=== PATIENT | female | born 1955 | race Two or more races ===

== ENCOUNTER 2021-11-15 14:52 | Emergency (ER) | payer MEDICARE, OTHER ==
--- NOTE | 2021-11-15 15:10 | ED Physician Documentation ---
PD HPI ABD PAIN - Stated complaint Stated Complaint: FEVER,CHILLS,LOWER ABD PX - Chief complaint Chief Complaint: Abd Pain - History obtained from History obtained from: Patient - History of Present Illness Timing - onset: How many days ago (2-3) Timing - duration: Days Timing - details: Gradual onset, Still present, Waxing and waning Quality: Cramping, Aching, Pain Location: Suprapubic, LLQ Radiation: Left flank. No: Chest Associated symptoms: Fever (chills), Nausea, Dysuria (frequency), Loss of appetite. No: Vomiting, Diarrhea, Constipation, Hematuria, Vaginal dc Similar symptoms before: Diagnosis (had just cystitis symptoms recently. Did not have chills, flank pain at that time.) Recently seen: Clinic (Patient seen about 10 days ago for dysuria and frequency and had a urinalysis consistent with UTI. Primary care prescribed Macrobid for 5 days and patient was feeling better. Symptoms now again over a few days.) Review of Systems Constitutional: reports: Fever, Chills. denies: Myalgias Nose: denies: Rhinorrhea / runny nose, Congestion Throat: denies: Sore throat Cardiac: denies: Chest pain / pressure Respiratory: denies: Cough GI: reports: Abdominal Pain, Nausea. denies: Vomiting, Constipation, Diarrhea : reports: Dysuria, Frequency. denies: Discharge Skin: denies: Rash, Lesions Neurologic: reports: Generalized weakness, Near syncope (with standing up yesterday). denies: Syncope, Altered mental status, Headache PD PAST MEDICAL HISTORY - Past Medical History Cardiovascular: None Respiratory: None Neuro: None Endocrine/Autoimmune: None : None - Present Medications Home Medications: Ambulatory Orders Medication Instructions Recorded Confirmed Ondansetron Odt [Zofran] 4 mg TL Q6H PRN #10 tablet 11/15/21 cephALEXin [Keflex] 500 mg PO QID 7 Days #28 cap 11/15/21 - Allergies Allergies/Adverse Reactions: Allergies Allergy/AdvReac Type Severity Reaction Status Date / Time lisinopril Allergy Unknown Verified 11/15/21 15:03 PD ED PE NORMAL - Vitals Vital signs reviewed: Yes (febrile and tachycardic; good BP. ) - General General: Alert and oriented X 3, No acute distress, Well developed/nourished - HEENT HEENT: Pharynx benign. No: Moist mucous membranes - Neck Neck: Supple, no meningeal sign, No adenopathy - Cardiac Cardiac: No murmur. No: RRR (regular but tachycardic) - Respiratory Respiratory: No respiratory distress, Clear bilaterally - Abdomen Abdomen: Soft, Non distended, No organomegaly, Other (Tender in the lower abdomen both left and right but more to the left. Some local guarding. No percussion nor rebound tenderness. Left CVA tenderness noted. No rash or sores.). No: Normal bowel sounds (diminished) - Female Female : Deferred - Rectal Rectal: Deferred - Back Back: Other (left CVA tender) - Derm Derm: Normal color, Warm and dry - Extremities Extremities: Normal ROM s pain, No edema, No calf tenderness / cord Results - Vitals Vitals: Vital Signs - 24 hr 11/15/21 11/15/21 11/15/21 14:58 15:03 15:33 Temperature 39.1 C H 39.1 C H 37.9 C Heart Rate 122 H 122 H 106 H Respiratory 28 H 28 H 24 Rate Blood Pressure 174/79 H 174/79 H 153/69 H O2 Saturation 97 97 96 11/15/21 11/15/21 11/15/21 16:03 16:30 17:06 Temperature 37.9 C Heart Rate 106 H 104 H 98 Respiratory 22 20 22 Rate Blood Pressure 150/70 H 153/71 H 136/67 H O2 Saturation 97 96 96 11/15/21 11/15/21 17:36 18:04 Temperature 37.8 C Heart Rate 98 90 Respiratory 18 16 Rate Blood Pressure 143/65 H 138/66 H O2 Saturation 99 100 Oxygen O2 Source Room air - Labs Labs: Laboratory Tests 11/15/21 11/15/21 11/15/21 15:32 15:32 15:32 WBC 15.8 H RBC 4.04 L Hgb 12.3 Hct 37.6 MCV 93.1 MCH 30.4 MCHC 32.7 RDW 13.0 Plt Count 210 MPV 9.3 Neut # (Auto) 14.2 H Lymph # (Auto) 0.6 L [place] # (Auto) 0.8 Eos # (Auto) 0.0 Baso # (Auto) 0.1 Absolute Nucleated RBC 0.00 Nucleated RBC % 0.0 Sodium 135 Potassium 3.4 L Chloride 99 L Carbon Dioxide 25 Anion Gap 11.0 BUN 19 Creatinine 1.1 H Estimated GFR (MDRD) 50 L Glucose 111 H Lactic Acid 0.9 Calcium 9.8 Magnesium 2.1 Total Bilirubin 1.9 H AST 62 H ALT 68 H Alkaline Phosphatase 66 Total Protein 8.1 Albumin 4.3 Globulin 3.8 Albumin/Globulin Ratio 1.1 Urine Color Urine Clarity Urine pH Ur Specific [place] Urine Protein Urine Glucose (UA) Urine Ketones Urine Occult Blood Urine Nitrite Urine Bilirubin Urine Urobilinogen Ur Leukocyte Esterase Urine RBC Urine WBC Ur Squamous Epith Cells Urine Bacteria Urine Culture Comments SARS-CoV-2 (PCR) 11/15/21 11/15/21 15:32 15:50 WBC RBC Hgb Hct MCV MCH MCHC RDW Plt Count MPV Neut # (Auto) Lymph # (Auto) [place] # (Auto) Eos # (Auto) Baso # (Auto) Absolute Nucleated RBC Nucleated RBC % Sodium Potassium Chloride Carbon Dioxide Anion Gap BUN Creatinine Estimated GFR (MDRD) Glucose Lactic Acid Calcium Magnesium Total Bilirubin AST ALT Alkaline Phosphatase Total Protein Albumin Globulin Albumin/Globulin Ratio Urine Color YELLOW Urine Clarity HAZY Urine pH 7.0 Ur Specific [place] 1.015 Urine Protein 30 H Urine Glucose (UA) NEGATIVE Urine Ketones 15 H Urine Occult Blood SMALL H Urine Nitrite NEGATIVE Urine Bilirubin NEGATIVE Urine Urobilinogen 0.2 (NORMAL) Ur Leukocyte Esterase TRACE H Urine RBC 0-5 Urine WBC 6-10 H Ur Squamous Epith Cells RARE Squamous Urine Bacteria Few Urine Culture Comments INDICATED SARS-CoV-2 (PCR) NOT DETECTED - Rads (name of study) abd/pelvic CT Radiology: Prelim report reviewed (Inflammatory changes around the left kidney with some mild dilation of the ureter. No calcified stones visible. Likely pyelonephritis. No intestinal source.), See rad report PD MEDICAL DECISION MAKING - ED course Complexity details: reviewed results, re-evaluated patient (The patient is actually feeling a bit better with some IV fluids and medications. She is uncertain about wanting to be in the hospital versus going home. We will give a little bit more IV fluids and reassess.), considered differential (Had cystitis with treatment by Macrobid. Return if symptoms and now fever lower abdominal and left flank pain likely consistent with pyelonephritis.), d/w patient ED course: Feeling well. taking fluids. HR improved. Lactate normal. Feeling she would prefer going home. Departure - Departure Disposition: Home, Self Care Clinical Impression: Pyelonephritis, Abdominal pain, SIRS (systemic inflammatory response syndrome) Condition: Stable Record reviewed to determine appropriate education?: Yes Instructions: ED Kidney Infec Female Follow-Up: Carolina Lock ARNP [Primary Care Provider] - Prescriptions: cephALEXin [Keflex] 500 mg PO QID 7 Days #28 cap Ondansetron Odt [Zofran] 4 mg TL Q6H PRN #10 tablet PRN Reason: Nausea / Vomiting Comments: Frequent fluids to maintain good hydration. Diet as tolerated. You do have an apparent kidney infection which has gotten you reasonably ill but you do not appear septic per se on your blood test. You seem to be improving heart rate in fever while here with fluids and medication. You can try going home and see how you do and I would feel reasonably sure you are going to do fine with home therapy and medications. Cephalexin antibiotic 4 times daily for the next week. Ondansetron if needed for nausea every 6 hours. Tylenol every 4-6 hours probably regularly for 2 days and then as needed. I would anticipate improvement over the next couple of days. Return if not improving well or if worsening symptoms again. I transmitted your prescriptions to [facility] in [place]. Discharge Date/Time: 11/15/21 18:04
[2021-11-15] MEDS ORDERED: cefTRIAXone 1 GM in SODIUM CHLORIDE 0.9% MINIBAG 100 ML IV STA (15:23)
[2021-11-15] MEDS ORDERED: KETOROLAC 15 MG/ML VIAL IVP STA (15:24)
[2021-11-15] MEDS ORDERED: ONDANSETRON 4 MG/2 ML VIAL IVP STA (15:24)
[2021-11-15] MEDS ORDERED: ACETAMINOPHEN 325 MG TABLET PO STA (15:24)
[2021-11-15] MEDS ORDERED: SODIUM CHLORIDE 0.9% 1,000 ML IV STA ×2 (15:24→16:46)
[2021-11-15 15:45] LABS: BASOPHILS # (AUTO) 0.1 10^3/uL (0.0-0.1); BASOPHILS % (AUTO) 0.3 %; EOSINOPHILS % (AUTO) 0.1 %; HCT - HEMATOCRIT 37.6 % (37.0-47.0); HGB - HEMOGLOBIN 12.3 g/dL (12.0-16.0); LYMPHOCYTES # (AUTO) 0.6 10^3/uL (1.5-3.5); LYMPHOCYTES % (AUTO) 3.9 %; MEAN CORPUSCULAR HEMOGLOBIN 30.4 pg (27.0-31.0); MEAN CORPUSCULAR HGB CONC 32.7 g/dL (32.0-36.0); MEAN CORPUSCULAR VOLUME 93.1 fL (81.0-99.0); MEAN PLATELET VOLUME 9.3 fL (7.9-10.8); MONOCYTES # (AUTO) 0.8 10^3/uL (0.0-1.0); MONOCYTES % (AUTO) 5.3 %; NEUTROPHILS # (AUTO) 14.2 10^3/uL (1.5-6.6); NEUTROPHILS % (AUTO) 89.8 %; PLT - PLATELET COUNT 210 10^3/uL (130-450); RED BLOOD COUNT 4.04 10^6/uL (4.20-5.40); WHITE BLOOD COUNT 15.8 x10^3/uL (4.8-10.8)
[2021-11-15 15:50] LABS: BILIRUBIN,URINE NEGATIVE (NEGATIVE); GLUCOSE, URINE (UA) NEGATIVE (NEGATIVE); KETONES,URINE (UA) 15 mg/dL (NEGATIVE); LEUKOCYTE ESTERASE, URINE TRACE (NEGATIVE); NITRITE,URINE NEGATIVE (NEGATIVE); OCCULT BLOOD,URINE SMALL (NEGATIVE); PROTEIN,URINE 30 mg/dL (NEGATIVE); UROBILINOGEN,URINE 0.2 (NORMAL) E.U./dL (NORMAL)
[2021-11-15 15:58] LABS: ALBUMIN 4.3 g/dL (3.2-5.5); ALBUMIN/GLOBULIN RATIO 1.1 (1.0-2.2); BILIRUBIN,TOTAL 1.9 mg/dL (0.2-1.0); CALCIUM 9.8 mg/dL (8.5-10.3); CREATININE 1.1 mg/dL (0.4-1.0); MAGNESIUM 2.1 mg/dL (1.7-2.8); POTASSIUM 3.4 mmol/L (3.5-5.0); TOTAL PROTEIN 8.1 g/dL (6.7-8.2)
--- NOTE | 2021-11-15 16:08 | CT Report ---
PROCEDURE: Abdomen/Pelvis WO INDICATIONS: low abd/left flank pain, fever, nausea TECHNIQUE: Noncontrast 5 mm thick sections acquired from the diaphragms to the symphysis. 5 mm coronal and sagi ttal reformats were then performed. For radiation dose reduction, the following was used: automated exposure control, adjustment of mA and/or kV according to patient size. COMPARISON: None. FINDINGS: Image quality: Excellent. ABDOMEN: Lung bases: Lung bases are clear. Heart size is normal. Solid organs: Liver and spleen are normal in size. Gallbladder is unremarkable. Pancreas is normal in contours. No adrenal nodules. Right kidney and right ureter are unremarkable. There is diffuse i nflammatory changes in the fat surrounding the left kidney. There is mild prominence of the left marty ecting system and proximal ureter. No left ureteral stone is identified. The distal left ureter is no rmal in caliber. Peritoneum and bowel: Unenhanced bowel loops demonstrate normal wall thickness and caliber. No free fluid or air. Nodes and vessels: No retroperitoneal or mesenteric adenopathy by size criteria. Aorta and inferior vena cava are normal in caliber. Miscellaneous: No ventral hernias. PELVIS: Genitourinary: Bladder is mostly decompressed. Mild bladder wall thickening. Miscellaneous: No inguinal hernias or adenopathy. Fibroid uterus. Multiple calcified fibroids. Bones: No suspicious bony lesions. No vertebral body compression fractures. IMPRESSION: 1. Mild diffuse bladder wall thickening. Question cystitis, of uncertain chronicity. 2. Extensive inflammatory change in the fat surrounding the left kidney, with mild prominence of the left collecting system and proximal left ureter. Consider possible noncalcified obstructing stone reyna la left pyelonephritis. Recommend clinical correlation. Reviewed by: Miles Kemp MD on 11/15/2021 3:07 PM FERNANDO Approved by: Miles Kemp MD on 11/15/2021 3:07 PM AKSLY Station ID: [id number]
[2021-11-15 16:10] LABS: CLARITY,URINE HAZY (CLEAR)
[2021-11-15 16:22] LABS: BACTERIA,URINE Few /HPF (None Seen); RBC,URINE 0-5 /HPF (0-5); SQUAMOUS EPITHELIAL CELL,UR RARE Squamous (<= Few)
[2021-11-15] MEDS ORDERED: ONDANSETRON ODT 4 MG Prepack 2 TL PRN (17:22)
[2021-11-15 18:05] VITALS: BP 138/66
== END 2021-11-15 18:04 | disposition home or self-care (01) ==
LOC: ED 14:52
DX: N12 Tubulo-interstitial nephritis, not specified as acute or chronic (principal); Z20.822 Contact with and (suspected) exposure to COVID-19
CPT/HCPCS: 36415; 74176; 80053; 81001; 83605; 83735; 85025; 87040; 87077; 87086; 87150; 87181; 87635; 96365; 96375; 99284; A9270

== ENCOUNTER 2021-11-16 12:26 | Inpatient (IN) | payer MEDICARE, OTHER ==
[2021-11-16] MEDS ORDERED: cefTRIAXone 2 GM in SODIUM CHLORIDE 0.9% MINIBAG 100 ML IV STA (12:48)
--- NOTE | 2021-11-16 12:50 | ED Physician Documentation ---
History of Present Illness - Stated complaint Stated Complaint: ABNORMAL LABS - Chief complaint Chief Complaint: General - History obtained from History obtained from: Patient - Additonal information Additional information: This is a 66-year-old woman who was seen by my partner yesterday for fevers chills and abdominal/flank pain. Diagnosed with pyelonephritis with a white count of 15,000 and a left shift, infected appearing urine in the setting of previous treatment with Macrobid, and a CT showing left-sided pyelonephritis. She was treated with ceftriaxone and was called back today because of 2 out of 2 blood cultures preliminarily positive for E. coli and likewise her urine culture is preliminarily positive for gram-negative rods. Her pain is persistent but the chills and fevers have abated since her treatment with ceftriaxone yesterday. Review of Systems Ten Systems: 10 systems reviewed and negative Constitutional: reports: Fatigue. denies: Fever, Chills GI: reports: Abdominal Pain (Left lower quadrant and left side). denies: Nausea, Vomiting, Constipation, Diarrhea PD PAST MEDICAL HISTORY - Past Medical History Cardiovascular: None Respiratory: None Neuro: None Endocrine/Autoimmune: None : None - Present Medications Home Medications: Ambulatory Orders Medication Instructions Recorded Confirmed Ondansetron Odt [Zofran] 4 mg TL Q6H PRN #10 tablet 11/15/21 cephALEXin [Keflex] 500 mg PO QID 7 Days #28 cap 11/15/21 - Allergies Allergies/Adverse Reactions: Allergies Allergy/AdvReac Type Severity Reaction Status Date / Time lisinopril Allergy Unknown Verified 11/16/21 12:31 PD ED PE NORMAL - Vitals Vital signs reviewed: Yes (Vital signs have normalized compared to yesterday) - General General: Alert and oriented X 3, No acute distress - HEENT HEENT: PERRL, EOMI - Neck Neck: Supple, no meningeal sign, No bony TTP - Cardiac Cardiac: RRR, No murmur - Respiratory Respiratory: No respiratory distress, Clear bilaterally - Abdomen Abdomen: Soft, Non tender - Back Back: No CVA TTP, No spinal TTP - Derm Derm: Normal color, Warm and dry - Extremities Extremities: No edema, No calf tenderness / cord - Neuro Neuro: Alert and oriented X 3, Normal speech Eye Opening: Spontaneous Motor: Obeys Commands Verbal: Oriented GCS Score: 15 Results - Vitals Vitals: Vital Signs - 24 hr 11/16/21 12:31 Temperature 36.7 C Heart Rate 85 Respiratory 16 Rate Blood Pressure 110/65 O2 Saturation 96 Oxygen O2 Source Room air - Labs Labs: Laboratory Tests 11/16/21 11/16/21 11/16/21 12:50 13:14 13:14 WBC 21.0 H RBC 3.35 L Hgb 10.6 L Hct 31.9 L MCV 95.2 MCH 31.6 H MCHC 33.2 RDW 13.6 Plt Count 212 MPV 10.3 Neut # (Auto) 18.5 H Lymph # (Auto) 0.9 L [place] # (Auto) 1.3 H Eos # (Auto) 0.0 Baso # (Auto) 0.1 Absolute Nucleated RBC 0.00 Band Neuts % (Manual) Not Reportable Abnorm Lymph % (Manual) Not Reportable Nucleated RBC % 0.0 Neutrophils # (Manual) Not Reportable Lymphocytes # (Manual) Not Reportable Monocytes # (Manual) Not Reportable Eosinophils # (Manual) Not Reportable Basophils # (Manual) Not Reportable Differential Comment MANUAL=AUTO DIFF WBC Morphology NORMAL APPEARANCE Platelet Estimate NORMAL (130-450,000) Platelet Morphology NORMAL APPEARANCE RBC Morph Micro Appear NORMAL APPEARANCE Sodium 133 L Potassium 3.7 Chloride 100 L Carbon Dioxide 24 Anion Gap 9.0 BUN 17 Creatinine 1.0 Estimated GFR (MDRD) 55 L Glucose 99 Lactic Acid 0.9 Calcium 9.1 PD MEDICAL DECISION MAKING - ED course ED course: 66-year-old woman with known pyelonephritis called back because of gram-negative bacteremia with PCR preliminarily positive for E. coli in 2 out of 2 blood cultures. Her vital signs were much better than yesterday but her white count is up trended from 15,000 -> 20,000. Although she had no chills between yesterday and today she did just start to develop rigors while in the department and I spoke with Dr. Gupta for admission at 1:48 PM after repeating 1 blood culture and giving her 2 g of ceftriaxone. COVID test was done and negative yesterday so not repeated preadmission. Departure - Departure Disposition: [facility] DC/Xfer Clinical Impression: Gram-negative bacteremia, Pyelonephritis Condition: Serious
[2021-11-16 13:09] LABS: BASOPHILS # (AUTO) 0.1 10^3/uL (0.0-0.1); BASOPHILS % (AUTO) 0.5 %; EOSINOPHILS % (AUTO) 0.1 %; HCT - HEMATOCRIT 31.9 % (37.0-47.0); HGB - HEMOGLOBIN 10.6 g/dL (12.0-16.0); LYMPHOCYTES # (AUTO) 0.9 10^3/uL (1.5-3.5); LYMPHOCYTES % (AUTO) 4.2 %; MEAN CORPUSCULAR HEMOGLOBIN 31.6 pg (27.0-31.0); MEAN CORPUSCULAR HGB CONC 33.2 g/dL (32.0-36.0); MEAN CORPUSCULAR VOLUME 95.2 fL (81.0-99.0); MEAN PLATELET VOLUME 10.3 fL (7.9-10.8); MONOCYTES # (AUTO) 1.3 10^3/uL (0.0-1.0); MONOCYTES % (AUTO) 6.1 %; NEUTROPHILS # (AUTO) 18.5 10^3/uL (1.5-6.6); NEUTROPHILS % (AUTO) 88.3 %; PLT - PLATELET COUNT 212 10^3/uL (130-450); RED BLOOD COUNT 3.35 10^6/uL (4.20-5.40); RED CELL DISTRIBUTION WIDTH 13.6 % (12.0-15.0)
[2021-11-16 13:29] LABS: CALCIUM 9.1 mg/dL (8.5-10.3); POTASSIUM 3.7 mmol/L (3.5-5.0)
[2021-11-16] MEDS ORDERED: ACETAMINOPHEN 500 MG TABLET PO STA (13:47)
[2021-11-16 13:48] LABS: DIFFERENTIAL COMMENT MANUAL=AUTO DIFF; PLATELET ESTIMATE, MANUAL NORMAL (130-450,000) (NORMAL); PLATELET MORPHOLOGY NORMAL APPEARANCE (NORMAL); RBC MORPHOLOGY (MULTIPLE) NORMAL APPEARANCE (NORMAL); WBC MORPHOLOGY (MULTIPLE) NORMAL APPEARANCE (NORMAL)
[2021-11-16] MEDS ORDERED: ONDANSETRON 4 MG/2 ML VIAL IVP PRN (13:50)
[2021-11-16] MEDS ORDERED: SODIUM CHLORIDE FLUSH 0.9% 10 ML SYRINGE IVP PRN (13:50)
--- NOTE | 2021-11-16 13:57 | HISTORY & PHYSICAL EXAMINATION ---
Chief Complaint - Chief Complaint Chief Complaint: chills, lower abdomen pain History of Present Illness - Admitted From Admitted From:: [facility] ED - History Obtained From Records Reviewed: yes History obtained from: patient - History of Present Illness HPI Comment/Other: Patient is a 66-year-old female who presented to the ED initially on 11/15/2021 with complaint of headache, lower abdominal pain, left flank pain, fatigue, chills. Her symptoms started 4 days prior to her initial presentation. Work-up included CBC, urine analysis and subsequently blood and urine cultures. She was given a dose of Rocephin and prescribed Keflex for a urinary tract infection and discharged home. Yesterday she was noted to have a temperature of 39.1 C, WBC 15 and a pulse of 120. Her heart rate improved with IV hydration. Today 11/16/2021 her blood cultures were positive for E. coli. As a result she was called back for further evaluation and treatment. Her white blood count today is 21 and she complained of chills persisting. Consequently, she was presented for admission for continued treatment in the hospital. She was started on Rocephin 2 g IV daily. She had a bladder infection 1 month ago for which she was treated with Macrobid for 1 week. At bedside she is tearful and the cause of giving history. She denies chest pain, dyspnea or vomiting. She reports lower abdominal pain and nausea. History - Past Medical History Cardiovascular: reports: Hypertension, High cholesterol Respiratory: reports: None Neuro: reports: None Endocrine/Autoimmune: reports: HyPOthyroidism : reports: None Psych: reports: Depression - Past Surgical History Ortho: reports: Other (Left shoulder surgery) - Family & Social History Family History Comment/Other: Patient's father at the age 67 from an [place]. Her mother had a CVA at age 80. Her brother in childhood. Etiology is undetermined but suspected to be due to a cardiac cause. Her children and her sister are healthy Social History Notes: She resides at home with her spouse. She is independent of activities of daily living and very active. She consumes alcohol occasionally. She does not use tobacco products or any recreational substance. - POLST Patient has POLST: No POLST Status: Full Code Meds/Allgy - Home Medications Home Medications: Ambulatory Orders Medication Instructions Recorded Confirmed Ondansetron Odt [Zofran] 4 mg TL Q6H PRN #10 tablet 11/15/21 cephALEXin [Keflex] 500 mg PO QID 7 Days #28 cap 11/15/21 Amlodipine Besylate [Norvasc] 2.5 mg PO DAILY 11/16/21 11/16/21 Atorvastatin [Lipitor] 20 mg PO DAILY 11/16/21 11/16/21 Calcium Carbonate [Calcium] 600 mg PO BIDWM 11/16/21 11/16/21 Cholecalciferol (Vitamin D3) 2,000 unit PO DAILY 11/16/21 11/16/21 [Vitamin D3] Levothyroxine [Synthroid] 88 mcg PO QDAC 11/16/21 11/16/21 Losartan [Cozaar] 50 mg PO BID 11/16/21 11/16/21 buPROPion HCL [Bupropion Xl] 150 mg PO DAILY 11/16/21 11/16/21 - Allergies Allergies/Adverse Reactions: Allergies Allergy/AdvReac Type Severity Reaction Status Date / Time lisinopril Allergy Unknown Verified 11/16/21 12:31 Review of Systems - Constitutional Constitutional: reports: Fever, Chills, Poor appetite - Eyes Eyes: denies: Pain, Vision loss, Dipolpia - Ears, Nose & Throat Ears, Nose & Throat: denies: Ear pain, Sore throat - Cardiovascular Cariovascular: denies: Irregular heart rate, Palpitations, Chest pain, Edema, Lightheadedness, Syncope, Exertional dyspnea - Respiratory Respiratory: denies: Cough, Sputum production, Wheezing, SOB at rest, SOB with exertion - Gastrointestinal Gastrointestinal: reports: Abdominal pain (lower abdomen), Nausea, Reflux/heartburn. denies: Diarrhea, Vomiting - Genitourinary Genitourinary: reports: Flank pain - Musculoskeletal Musculoskeletal: denies: Muscle pain, Back pain, Muscle aches, Stiffness - Integumentary Integumentary: denies: Rash - Neurological Neurological: reports: Headache. denies: General weakness, Focal weakness - Psychiatric Psychiatric: reports: Depression. denies: Anxiety - Hematologic/Lymphatic Hematologic/Lymphatic: denies: Bruising, Petechiae Prior Level of Functionality: She is very active and independent of activities of daily living Exam - Vital Signs Vital Signs: Vital Signs x48h Temp Pulse Resp BP Pulse Ox 11/16/21 12:31 36.7 C 85 16 110/65 96 - Physical Exam General Appearance: positive: No acute distress, Alert, Other (tearful) Eyes Bilateral: positive: PERRL, EOMI ENT: positive: No signs of dehydration Neck: positive: No JVD, Trachea midline Respiratory: positive: Chest non-tender, No respiratory distress, Breath sounds nml. negative: Wheezes, Rales, Rhonchi Cardiovascular: positive: Regular rate & rhythm, No murmur, No gallop Abdomen: positive: Tenderness (mild. lower abdomen). negative: Guarding, Rebound Back: positive: Nml inspection Skin: positive: Color nml, No rash, Warm, Dry Extremities: positive: Non-tender, Full ROM, Nml appearance, No pedal edema Neurologic/Psychiatric: positive: Oriented x3, Mood/affect nml Conclusion/Plan - Problem List (1) Pyelonephritis Conclusion/Plan: Patient has a WBC count of [address] of the abdomen/pelvis done yesterday showed extensive inflammatory changes in the fat surrounding the left kidney, mild prominence of the left collecting system and proximal left ureter. Blood cultures done 11/15/2021 grew E. coli. Patient was started on Rocephin 2 g IV daily. We will continue while waiting on sensitivities of blood cultures. Tylenol every 6 hours as needed for fever. IV hydration with normal saline at 100 mL/h. (2) Hypertension Conclusion/Plan: We will hold patient's losartan while treating pyelonephritis. Will resume amlodipine 2.5 mg p.o. daily once verified. (3) Hypothyroidism Conclusion/Plan: On Synthroid 88 mcg p.o. daily AC. (4) Hyperlipidemia Conclusion/Plan: On atorvastatin 20 mg p.o. daily - Lab Results Fish Bones: 11/16/21 12:50 11/16/21 13:14 Core Measures - Anticipated LOS I expect patient to be DC'd or transferred within 96 hours.: Yes - DVT/VTE - Prophylaxis VTE/DVT Device ordered at admit?: Yes VTE/DVT Prophylaxis med ordered at admit?: No
[2021-11-16] MEDS: SODIUM CHLORIDE 0.9% 1,000 ML IV SCH (15:28)
[2021-11-16] MEDS: SODIUM CHLORIDE FLUSH 0.9% 10 ML SYRINGE IVP SCH (15:28)
[2021-11-16] MEDS: CALCIUM CARB (OYSTER SHELL) 500 MG TABLET PO SCH (17:22)
[2021-11-16] MEDS: ACETAMINOPHEN 325 MG TABLET PO PRN (18:25)
[2021-11-17] MEDS: SODIUM CHLORIDE FLUSH 0.9% 10 ML SYRINGE IVP SCH ×3 (00:10→17:44)
[2021-11-17] MEDS: ACETAMINOPHEN 325 MG TABLET PO PRN ×3 (00:21→17:44)
[2021-11-17] MEDS: SODIUM CHLORIDE 0.9% 1,000 ML IV SCH (01:22)
[2021-11-17 04:47] LABS: BASOPHILS % (AUTO) 0.3 %; EOSINOPHILS % (AUTO) 0.2 %; HCT - HEMATOCRIT 28.3 % (37.0-47.0); HGB - HEMOGLOBIN 9.5 g/dL (12.0-16.0); LYMPHOCYTES # (AUTO) 0.7 10^3/uL (1.5-3.5); LYMPHOCYTES % (AUTO) 4.7 %; MEAN CORPUSCULAR HEMOGLOBIN 31.3 pg (27.0-31.0); MEAN CORPUSCULAR HGB CONC 33.6 g/dL (32.0-36.0); MEAN CORPUSCULAR VOLUME 93.1 fL (81.0-99.0); MEAN PLATELET VOLUME 9.9 fL (7.9-10.8); MONOCYTES # (AUTO) 1.3 10^3/uL (0.0-1.0); MONOCYTES % (AUTO) 8.6 %; NEUTROPHILS # (AUTO) 13.4 10^3/uL (1.5-6.6); NEUTROPHILS % (AUTO) 85.5 %; PLT - PLATELET COUNT 193 10^3/uL (130-450); RED BLOOD COUNT 3.04 10^6/uL (4.20-5.40); RED CELL DISTRIBUTION WIDTH 13.3 % (12.0-15.0); WHITE BLOOD COUNT 15.7 x10^3/uL (4.8-10.8)
[2021-11-17 04:57] LABS: CALCIUM 8.3 mg/dL (8.5-10.3); POTASSIUM 3.6 mmol/L (3.5-5.0)
[2021-11-17] MEDS: LEVOTHYROXINE 88 MCG TABLET PO SCH (06:16)
--- NOTE | 2021-11-17 07:39 | PROVIDER PROGRESS NOTE ---
Subjective - Prog Note Date Prog Note Date: 11/17/21 - Subjective Subjective: She reports feeling better compared to 2 to 3 days ago. Still has left flank pain and left lower quadrant discomfort. Still has an occasional headache. No nausea or vomiting. Her appetite is still somewhat diminished. She has not noticed any bleeding or blood in her stools Current Medications - Current Medications Current Medications: Active Medications Acetaminophen (Acetaminophen 325 Mg Tablet) 650 mg PO Q4HR PRN PRN Reason: Pain 1 to 4, or Fever Last Admin: 11/17/21 06:15 Dose: 650 mg Amlodipine Besylate (Amlodipine 5 Mg Tablet) 2.5 mg PO DAILY [facility] Atorvastatin Calcium (Atorvastatin 10 Mg Tablet) 20 mg PO DAILY [facility] Bupropion HCl (Bupropion Xl 150 Mg Tablet) 150 mg PO DAILY [facility] Calcium Carbonate/Glycine (Calcium Carb (Oyster Shell) 500 Mg Tablet) 500 mg PO BIDWM [facility] Last Admin: 11/16/21 17:22 Dose: 500 mg Cholecalciferol (Cholecalciferol 25 Mcg Tablet) 50 mcg PO DAILY [facility] Sodium Chloride (Normal Saline 0.9%) 1,000 mls @ 100 mls/hr IV .Q10H [facility] Last Admin: 11/17/21 01:22 Dose: 100 mls/hr Ceftriaxone Sodium 2 gm/ (Sodium Chloride) 100 mls @ 200 mls/hr IV DAILY [facility] Levothyroxine Sodium (Levothyroxine 88 Mcg Tablet) 88 mcg PO QDAC [facility] Last Admin: 11/17/21 06:16 Dose: 88 mcg Ondansetron HCl (Ondansetron 4 Mg/2 Ml Vial) 4 mg IVP Q6HR PRN PRN Reason: Nausea / Vomiting Last Admin: 11/17/21 00:21 Dose: 4 mg Sodium Chloride (Sodium Chloride Flush 0.9% 10 Ml Syringe) 10 ml IVP PRN PRN PRN Reason: NEEDED PER PROVIDER ORDERS Sodium Chloride (Sodium Chloride Flush 0.9% 10 Ml Syringe) 10 ml IVP 0100,0900,1700 [facility] Last Admin: 11/17/21 00:10 Dose: Not Given Amlodipine Besylate [Norvasc] 2.5 mg PO DAILY 11/16/21 Atorvastatin [Lipitor] 20 mg PO DAILY 11/16/21 Calcium Carbonate [Calcium] 600 mg PO BIDWM 11/16/21 Cholecalciferol (Vitamin D3) [Vitamin D3] 2,000 unit PO DAILY 11/16/21 Levothyroxine [Synthroid] 88 mcg PO QDAC 11/16/21 Losartan [Cozaar] 50 mg PO BID 11/16/21 buPROPion HCL [Bupropion Xl] 150 mg PO DAILY 11/16/21 Objective - Vital Signs/Intake & Output Reviewed Vital Signs: Yes Vital Signs: Vital Signs x48h Temp Pulse Resp BP Pulse Ox 11/17/21 05:00 37.2 C 82 16 123/59 L 93 11/17/21 01:00 37.7 C 100 16 142/67 H 96 Intake & Output: Intake & Output 11/14/21 11/15/21 11/16/21 11/17/21 23:59 23:59 23:59 23:59 Intake Total 1040 1350 Balance 1040 1350 - Objective General Appearance: positive: No acute distress, Alert Eyes Bilateral: positive: Normal inspection, Conjunctivae nml ENT: positive: ENT inspection nml Neck: positive: Nml inspection Respiratory: positive: No respiratory distress. negative: Wheezes, Rales Cardiovascular: positive: Regular rate & rhythm, No murmur. negative: Tachyca rdia Abdomen: positive: No distention, Tenderness (Mild tenderness in suprapubic and left lower quadrant region). negative: Guarding, Rebound Back: positive: CVA tenderness (L). negative: CVA tenderness (R) Extremities: positive: No pedal edema Neurologic/Psychiatric: positive: Motor nml. negative: Disoriented to person, Disoriented to place - Lab Results Fish Bones: 11/17/21 04:22 11/17/21 04:22 Other Labs: Lab Results x24hrs 11/17/21 11/17/21 11/16/21 Range/Units 04:22 04:22 13:14 WBC 15.7 H (4.8-10.8) x10^3/uL RBC 3.04 L (4.20-5.40) 10^6/uL Hgb 9.5 L (12.0-16.0) g/dL Hct 28.3 L (37.0-47.0) % MCV 93.1 (81.0-99.0) fL MCH 31.3 H (27.0-31.0) pg MCHC 33.6 (32.0-36.0) g/dL RDW 13.3 (12.0-15.0) % Plt Count 193 (130-450) 10^3/uL MPV 9.9 (7.9-10.8) fL Neut # (Auto) 13.4 H (1.5-6.6) 10^3/uL Lymph # (Auto) 0.7 L (1.5-3.5) 10^3/uL [place] # (Auto) 1.3 H (0.0-1.0) 10^3/uL Eos # (Auto) 0.0 (0.0-0.7) 10^3/uL Baso # (Auto) 0.0 (0.0-0.1) 10^3/uL Absolute Nucleated RBC 0.00 x10^3/uL Band Neuts % (Manual) Abnorm Lymph % (Manual) Nucleated RBC % 0.0 /100WBC Neutrophils # (Manual) Lymphocytes # (Manual) Monocytes # (Manual) Eosinophils # (Manual) Basophils # (Manual) Differential Comment WBC Morphology (NORMAL) Platelet Estimate (NORMAL) Platelet Morphology (NORMAL) RBC Morph Micro Appear (NORMAL) Sodium 135 (135-145) mmol/L Potassium 3.6 (3.5-5.0) mmol/L Chloride 107 (101-111) mmol/L Carbon Dioxide 22 (21-32) mmol/L Anion Gap 6.0 (6-13) BUN 14 (6-20) mg/dL Creatinine 1.0 (0.4-1.0) mg/dL Estimated GFR (MDRD) 55 L (>89) Glucose 117 H (70-100) mg/dL Lactic Acid 0.9 (0.5-2.2) mmol/L Calcium 8.3 L (8.5-10.3) mg/dL 11/16/21 11/16/21 Range/Units 13:14 12:50 WBC 21.0 H (4.8-10.8) x10^3/uL RBC 3.35 L (4.20-5.40) 10^6/uL Hgb 10.6 L (12.0-16.0) g/dL Hct 31.9 L (37.0-47.0) % MCV 95.2 (81.0-99.0) fL MCH 31.6 H (27.0-31.0) pg MCHC 33.2 (32.0-36.0) g/dL RDW 13.6 (12.0-15.0) % Plt Count 212 (130-450) 10^3/uL MPV 10.3 (7.9-10.8) fL Neut # (Auto) 18.5 H (1.5-6.6) 10^3/uL Lymph # (Auto) 0.9 L (1.5-3.5) 10^3/uL [place] # (Auto) 1.3 H (0.0-1.0) 10^3/uL Eos # (Auto) 0.0 (0.0-0.7) 10^3/uL Baso # (Auto) 0.1 (0.0-0.1) 10^3/uL Absolute Nucleated RBC 0.00 x10^3/uL Band Neuts % (Manual) Not Reportable Abnorm Lymph % (Manual) Not Reportable Nucleated RBC % 0.0 /100WBC Neutrophils # (Manual) Not Reportable Lymphocytes # (Manual) Not Reportable Monocytes # (Manual) Not Reportable Eosinophils # (Manual) Not Reportable Basophils # (Manual) Not Reportable Differential Comment MANUAL=AUTO DIFF WBC Morphology NORMAL APPEARANCE (NORMAL) Platelet Estimate NORMAL (130-450,000) (NORMAL) Platelet Morphology NORMAL APPEARANCE (NORMAL) RBC Morph Micro Appear NORMAL APPEARANCE (NORMAL) Sodium 133 L (135-145) mmol/L Potassium 3.7 (3.5-5.0) mmol/L Chloride 100 L (101-111) mmol/L Carbon Dioxide 24 (21-32) mmol/L Anion Gap 9.0 (6-13) BUN 17 (6-20) mg/dL Creatinine 1.0 (0.4-1.0) mg/dL Estimated GFR (MDRD) 55 L (>89) Glucose 99 (70-100) mg/dL Lactic Acid (0.5-2.2) mmol/L Calcium 9.1 (8.5-10.3) mg/dL ABX Reporting Has patient been on IV antibiotics over the past 48 hours?: Yes Sepsis Event Note (H) - Evaluation Current Stage of Sepsis: Sepsis Possible source of Sepsis: positive: Genitourinary - Sepsis Criteria Sepsis Criteria: Recorded Temperature greater than 38.3C or Less than 36C, Recorded Heart Rate greater than 90 bpm, WBC count greater than 12,000 or less than 4000 Assessment/Plan - Problem List (1) Sepsis Impression: This is secondary to E. coli pyelonephritis and is improving. She has been afebrile with improving white blood cell count. Tachycardia has resolved. We will keep her on ceftriaxone IV for 1 more day. Plan will be to discharge tomorrow on oral antibiotics to complete at least 10 days of therapy for the pyelonephritis as long as she remains afebrile with an improving white blood cell count. (2) Pyelonephritis Impression: This is a cause of her sepsis and the source of the E. coli bacteremia. Clinically she has had significant improvement and is afebrile. We will keep her on IV ceftriaxone IV for 1 more day. As long as she continues to improve we will plan to discharge tomorrow to complete at least 10 days of therapy. Her pain is improving and we will continue with Tylenol as needed. (3) E coli bacteremia Impression: Blood cultures from the are growing E. coli. Sensitivities are still pending but she has shown improvement with ceftriaxone. As long as she continues to improve then the plan will be to discharge on either Vantin or ciprofloxacin tomorrow. (4) Anemia Impression: Her hemoglobin is decreasing slowly but there is no evidence of bleeding. It is 9.5 this morning. Suspect this is likely component of hemodilution given IV fluids she initially received as well as likely related to the sepsis. We will check iron studies. Continue to monitor hemoglobin daily. (5) Hypertension Impression: Her blood pressure is well controlled. We have resumed her home amlodipine and we will look to resume the losartan today. (6) Hypothyroidism Impression: We are continuing her home Synthroid.
[2021-11-17] MEDS: CALCIUM CARB (OYSTER SHELL) 500 MG TABLET PO SCH ×2 (08:12→17:44)
[2021-11-17] MEDS: amLODIPine 5 MG TABLET PO SCH (08:12)
[2021-11-17] MEDS: CHOLECALCIFEROL 25 MCG TABLET PO SCH (08:13)
[2021-11-17] MEDS: ATORVASTATIN 10 MG TABLET PO SCH (08:14)
[2021-11-17] MEDS: buPROPion XL 150 MG TABLET PO SCH (08:14)
[2021-11-17 08:20] LABS: % IRON SATURATION 6 % (20-50); IRON 16 ug/dL (28-170); TOTAL IRON BINDING CAPACITY 248 ug/dL (250-450); TRANSFERRIN 177 mg/dL (192-382)
[2021-11-17] MEDS: cefTRIAXone 2 GM in SODIUM CHLORIDE 0.9% MINIBAG 100 ML IV SCH (08:26)
--- NOTE | 2021-11-17 18:58 | Discharge Plan ---
Discharge Plan Problem Reviewed?: Yes Disposition: Home, Self Care Condition: Stable Prescriptions: Ciprofloxacin [Cipro] 500 mg PO Q12H 3 Days #12 tablet Diet: Regular Activity Restrictions: Activity as Tolerated Health Concerns: You were admitted to the hospital because of a urinary tract infection and spread to your left kidney. This is called pyelonephritis. Because of this infection, the bacteria also spread to your blood. We have daily with IV antibiotics and you have since been fever free and your white blood cell count continues to improve. We checked your blood again and there is no evidence of bacterial growth. You are now stable for discharge home. Plan of Treatment: Please begin to take his ciprofloxacin 500mg twice a day for 3 more days. The first day will be November 19. This is to complete 7 days of therapy for your infection. If you do develop diarrhea over the next few weeks then this may be related to the antibiotic you are prescribed. You can see your primary care physician and they can test for what is called C. difficile. If your diarrhea is severe whwew you feel dehydrated and weak then please come to the emergency department. Assessment: The patient expressed understanding of the treatment plan. Additional Instructions or Follow Up instructions: Please return to the emergency department if you develop any fevers, chills or worsening pain. Please follow-up with your primary care physician in 1 to 2 weeks. No Smoking: If you smoke, Please STOP! Call for help. Follow-up with: Carolina Lock ARNP [Primary Care Provider] -
--- NOTE | 2021-11-17 19:08 | DISCHARGE SUMMARY ---
Discharge Summary Admit Date: 11/16/21 Discharge Date: 11/18/21 Discharging Provider: Jordan Gutierrez Primary Care Provider: Carolina Rodriguez Condition at Discharge: Stable Discharge Disposition: 01 Home, Self Care - DIAGNOSES Admission Diagnoses: Pyelonephritis Hypertension Hypothyroidism Hyperlipidemia Discharge Diagnoses with Status of Each Condition: Sepsis - resolved. Pyelonephritis - improved. E. coli bacteremia - resolved. Anemia - stable. Hypertension - stable. Hypothyroidism - stable. - HPI History of Present Illness: H&P per Dr. Gupta: Patient is a 66-year-old female who presented to the ED initially on 11/15/2021 with complaint of headache, lower abdominal pain, left flank pain, fatigue, chills. Her symptoms started 4 days prior to her initial presentation. Work-up included CBC, urine analysis and subsequently blood and urine cultures. She was given a dose of Rocephin and prescribed Keflex for a urinary tract infection and discharged home. Yesterday she was noted to have a temperature of 39.1 C, WBC 15 and a pulse of 120. Her heart rate improved with IV hydration. Today 11/16/2021 her blood cultures were positive for E. coli. As a result she was called back for further evaluation and treatment. Her white blood count today is 21 and she complained of chills persisting. Consequently, she was presented for admission for continued treatment in the hospital. She was started on Rocephin 2 g IV daily. She had a bladder infection 1 month ago for which she was treated with Macrobid for 1 week. At bedside she is tearful and the cause of giving history. She denies chest pain, dyspnea or vomiting. She reports lower abdominal pain and nausea. - HOSPITAL COURSE Hospital Course: She was admitted to the floor for sepsis secondary to pyelonephritis given blood cultures from the prior day grew E. coli. She was continued on IV ceftriaxone. Repeat blood cultures were obtained and have been negative to date. Initial cultures grew a pansensitive E. coli. She had improvement in her white blood cell count each day and remained afebrile. She also had improvement in her flank pain. She was discharged home on oral ciprofloxacin 500 mg twice a day for 3 more days to complete 1 week of therapy for the E. coli pyelonephritis/bacteremia. She was instructed to return to the emergency department if she developed fevers or worsening flank pain. - ALLERGIES Allergies/Adverse Reactions: Allergies Allergy/AdvReac Type Severity Reaction Status Date / Time lisinopril Allergy Unknown Verified 11/16/21 12:31 - MEDICATIONS Home Medications: Ambulatory Orders Medication Instructions Recorded Confirmed Ondansetron Odt [Zofran Odt] 4 mg TL Q6H PRN #10 tablet 11/15/21 Amlodipine Besylate [Norvasc] 2.5 mg PO DAILY 11/16/21 11/16/21 Atorvastatin [Lipitor] 20 mg PO DAILY 11/16/21 11/16/21 Calcium Carbonate [Calcium] 600 mg PO BIDWM 11/16/21 11/16/21 Cholecalciferol (Vitamin D3) 2,000 unit PO DAILY 11/16/21 11/16/21 [Vitamin D3] Levothyroxine [Synthroid] 88 mcg PO QDAC 11/16/21 11/16/21 Losartan [Cozaar] 50 mg PO BID 11/16/21 11/16/21 buPROPion HCL [Bupropion Xl] 150 mg PO DAILY 11/16/21 11/16/21 Ciprofloxacin [Cipro] 500 mg PO Q12H 3 Days #12 tablet 11/18/21 - PHYSICAL EXAM AT DISCHARGE General Appearance: positive: No acute distress, Alert Eyes Bilateral: positive: Normal inspection, Conjunctivae nml ENT: positive: ENT inspection nml Neck: positive: Nml inspection Respiratory: positive: No respiratory distress. negative: Wheezes, Rales Cardiovascular: positive: Regular rate & rhythm, No murmur. negative: Tachycardia Abdomen: positive: Non-tender, No distention. negative: Guarding, Rebound Back: positive: CVA tenderness (L) (Minimal tenderness.). negative: CVA tenderness (R) Skin: positive: Warm, Dry Extremities: positive: No pedal edema Neurologic/Psychiatric: positive: Motor nml. negative: Disoriented to person, Disoriented to place, Disoriented to time Physical Exam Other/Comments: Vital Signs - 24 hr 11/17/21 11/17/21 11/17/21 08:03 08:20 11:50 Temperature 36.9 C 37 C Heart Rate [ 80 86 Brachial] Respiratory 18 20 Rate Blood Pressure 134/68 H 133/66 H 143/69 H [Right Brachial artery] O2 Saturation 93 99 11/17/21 11/18/2122 16:43 02:00 07:37 Temperature 37.2 C 37.6 C 37 C Heart Rate [ 99 98 80 Brachial] Respiratory 18 16 16 Rate Blood Pressure 151/76 H 145/72 H 145/70 H [Right Brachial artery] O2 Saturation 93 95 98 Oxygen O2 Source Room air - LABS Result Diagrams: 11/18/21 05:34 11/18/21 05:34 - DIAGNOSTIC IMAGING Diagnostic Imaging Results: Final report reviewed - SEPSIS Current Stage of Sepsis: Resolved Possible source of Sepsis: Genitourinary Sepsis Criteria: Recorded Temperature greater than 38.3C or Less than 36C, Recorded Heart Rate greater than 90 bpm, WBC count greater than 12,000 or less than 4000 - FOLLOW UP Follow Up: She was encouraged to follow-up with her primary care physician in 1 to 2 weeks. - TIME SPENT Time Spent in Discharge (Minutes): 32
[2021-11-17] MEDS: LOSARTAN 50 MG TABLET PO SCH (20:25)
[2021-11-18] MEDS: SODIUM CHLORIDE FLUSH 0.9% 10 ML SYRINGE IVP SCH ×2 (00:29→07:48)
[2021-11-18] MEDS: ACETAMINOPHEN 325 MG TABLET PO PRN (02:22)
[2021-11-18 05:58] LABS: BASOPHILS # (AUTO) 0.1 10^3/uL (0.0-0.1); BASOPHILS % (AUTO) 0.4 %; EOSINOPHILS # (AUTO) 0.1 10^3/uL (0.0-0.7); HCT - HEMATOCRIT 28.7 % (37.0-47.0); HGB - HEMOGLOBIN 9.8 g/dL (12.0-16.0); LYMPHOCYTES # (AUTO) 1.1 10^3/uL (1.5-3.5); LYMPHOCYTES % (AUTO) 9.5 %; MEAN CORPUSCULAR HEMOGLOBIN 31.1 pg (27.0-31.0); MEAN CORPUSCULAR HGB CONC 34.1 g/dL (32.0-36.0); MEAN CORPUSCULAR VOLUME 91.1 fL (81.0-99.0); MEAN PLATELET VOLUME 9.5 fL (7.9-10.8); MONOCYTES # (AUTO) 0.9 10^3/uL (0.0-1.0); MONOCYTES % (AUTO) 8.2 %; NEUTROPHILS # (AUTO) 9.2 10^3/uL (1.5-6.6); NEUTROPHILS % (AUTO) 80.4 %; PLT - PLATELET COUNT 231 10^3/uL (130-450); RED BLOOD COUNT 3.15 10^6/uL (4.20-5.40); RED CELL DISTRIBUTION WIDTH 13.2 % (12.0-15.0); WHITE BLOOD COUNT 11.5 x10^3/uL (4.8-10.8)
[2021-11-18 06:07] LABS: CREATININE 0.9 mg/dL (0.4-1.0); POTASSIUM 3.8 mmol/L (3.5-5.0)
[2021-11-18] MEDS: LEVOTHYROXINE 88 MCG TABLET PO SCH (06:58)
[2021-11-18 07:39] VITALS: BP 145/70
[2021-11-18] MEDS: ATORVASTATIN 10 MG TABLET PO SCH (07:40)
[2021-11-18] MEDS: amLODIPine 5 MG TABLET PO SCH (07:40)
[2021-11-18] MEDS: CALCIUM CARB (OYSTER SHELL) 500 MG TABLET PO SCH (07:41)
[2021-11-18] MEDS: CHOLECALCIFEROL 25 MCG TABLET PO SCH (07:41)
[2021-11-18] MEDS: buPROPion XL 150 MG TABLET PO SCH (07:41)
[2021-11-18] MEDS: LOSARTAN 50 MG TABLET PO SCH (07:41)
[2021-11-18] MEDS: cefTRIAXone 2 GM in SODIUM CHLORIDE 0.9% MINIBAG 100 ML IV SCH (07:43)
[2021-11-18] MEDS ORDERED: polyethylene glycoL 3350 17 GM PACKET PO SCH (09:00)
== END 2021-11-18 09:25 | disposition home or self-care (01) | DRG 872 ==
LOC: ED 12:26 → MS2 13:50
PROVIDERS: ADMIT Internal Medicine; ATTEND Internal Medicine
DX: A41.51 Sepsis due to Escherichia coli [E. coli] (principal); B96.20 Unspecified Escherichia coli [E. coli] as the cause of diseases classified elsewhere; N12 Tubulo-interstitial nephritis, not specified as acute or chronic; D64.9 Anemia, unspecified; I10 Essential (primary) hypertension; E03.9 Hypothyroidism, unspecified; E78.5 Hyperlipidemia, unspecified
CPT/HCPCS: 36415; 80048; 82728; 83540; 83605; 84466; 85025; 87040; 99284; 99285; A9270

== ENCOUNTER 2023-10-18 08:00 | Outpatient (CLI) | payer MEDICARE | END 2023-10-18 23:59 | disposition home or self-care (01) | LOC: LAB.WCP 08:00 | PROVIDERS: ATTEND Physician Assistant | DX: R30.0 Dysuria (principal) | CPT/HCPCS: 87086 ==